=== PATIENT | female | born 1980 | race Caucasian/White ===

== ENCOUNTER 2020-10-20 16:31 | Emergency (ER) | payer SELFPAY ==
[~2020-10-20] VITALS: Ht 149.9 cm; Wt 97.3 kg
[~2020-10-20 16:31] MED LIST: ATOR10TA9 PO; INSU100C5 SQ-INSULIN; INSU100V8 SQ; LEVE250T5 PO; LISI2.5T PO; METF500T27 PO
[2020-10-20 17:14] LABS: BASOPHILS % (AUTO) 1 % (0-1); EOSINOPHILS % (AUTO) 1 % (1-7); LYMPHOCYTES % (AUTO) 24 % (22-44); MEAN CORPUSCULAR HEMOGLOBIN 30.7 pg (27.0-34.8); MEAN CORPUSCULAR HGB CONC 34.4 g/dL (32.4-35.8); MEAN PLATELET VOLUME 8.1 fL (7.4-10.4); MONOCYTES % (AUTO) 8 % (2-9); NEUTROPHILS % (AUTO) 66 % (42-75); PLATELET COUNT 359 x10^3/uL (130-400); RED CELL DISTRIBUTION WIDTH 13.6 % (9.6-15.2)
[2020-10-20 17:23] LABS: ALANINE AMINOTRANSFERASE 32 U/L (12-78); ALBUMIN 3.5 g/dL (3.4-5.0); ANION GAP 11 mmol/L (5-15); CHLORIDE 108 mmol/L (98-107); CREATININE 0.58 mg/dL (0.55-1.02)
[2020-10-20 17:27] LABS: ALKALINE PHOSPHATASE 84 U/L (45-117); BILIRUBIN,TOTAL 1.5 mg/dL (0.2-1.0); TOTAL PROTEIN 7.5 g/dL (6.4-8.2); TROPONIN I < 0.015 ng/mL (0.000-0.045)
--- NOTE | 2020-10-20 20:33 | NUR ---
PT BROUGHT BACK TO ROOM FROM LOBBY. PT CO RIGHT ARM PAIN THAT WRAPS AROUND TO HER BACK AND ACROSS HER CHEST. PT DENIES ANY SOB, TRAUMA, NUMBNESS OR TINGLING.
--- NOTE | 2020-10-20 20:49 | NUR ---
REPORT GIVEN TO MARCE SPANN
--- NOTE | 2020-10-20 21:27 | NUR ---
PROVIDED WITH INCENTIVE SPIROMETER. DEMONSTRATION APPROPRIATE. REVIEWED IMPORTANCE OF PCP F/U [facility] TO WATCH FOR [facility]
[2020-10-20 21:31] VITALS: BP 149/73
== END 2020-10-20 21:33 | disposition home or self-care (01) ==
LOC: ED 21:10
DX: R07.2 Precordial pain (principal); E80.7 Disorder of bilirubin metabolism, unspecified; R11.10 Vomiting, unspecified; R94.31 Abnormal electrocardiogram [ECG] [EKG]; E11.65 Type 2 diabetes mellitus with hyperglycemia; E78.5 Hyperlipidemia, unspecified; G89.29 Other chronic pain; G43.909 Migraine, unspecified, not intractable, without status migrainosus; Z90.49 Acquired absence of other specified parts of digestive tract
CPT/HCPCS: 36415; 71045; 80053; 84484; 85025; 93005; 99285

== ENCOUNTER 2020-10-25 10:23 | Emergency (ER) | payer OTHER ==
[~2020-10-25] VITALS: Ht 149.9 cm; Wt 98.6 kg
--- NOTE | 2020-10-25 10:43 | NUR ---
regulator mechanic: EKG done in triage
--- NOTE | 2020-10-25 11:14 | NUR ---
CAR WASH MANAGER: PT TO ROOM FROM LOBBY
--- NOTE | 2020-10-25 11:28 | NUR ---
PROVIDER AT BEDSIDE PT HOOKED UP TO HEART MONITOR, BP AND O2. PT WILL HAVE CONTINUAL MONITORING. BED RAILS UP X2. CALL REMOTE WITHIN REACH.
[2020-10-25 11:29] LABS: BASOPHILS % (AUTO) 1 % (0-1); EOSINOPHILS % (AUTO) 1 % (1-7); LYMPHOCYTES % (AUTO) 28 % (22-44); MEAN CORPUSCULAR HEMOGLOBIN 30.9 pg (27.0-34.8); MEAN CORPUSCULAR HGB CONC 35.4 g/dL (32.4-35.8); MEAN PLATELET VOLUME 8.5 fL (7.4-10.4); MONOCYTES % (AUTO) 7 % (2-9); NEUTROPHILS % (AUTO) 63 % (42-75); PLATELET COUNT 295 x10^3/uL (130-400); RED BLOOD COUNT 4.98 x10^6/uL (3.82-5.3); RED CELL DISTRIBUTION WIDTH 13.6 % (9.6-15.2)
--- NOTE | 2020-10-25 11:33 | NUR ---
PT REPORTS CONSTANTCHEST PAIN MODERATE STARTED LAST SUNDAY ON THE RIGHT CHEST "feels like it is in the lung" HURTS WITH MOVEMENT OR BREATHING AND SOB EXERTION, THROUGHT THE WEEK FELT DULL PAIN IN ANKLE AND FEELS HEAVY, THIS PAIN COMES AND GOES.
[2020-10-25 11:36] LABS: CALCIUM 8.5 mg/dL (8.5-10.1); CHLORIDE 105 mmol/L (98-107)
[2020-10-25 11:44] LABS: ALANINE AMINOTRANSFERASE 31 U/L (12-78); ALBUMIN 3.5 g/dL (3.4-5.0); ALKALINE PHOSPHATASE 82 U/L (45-117); ANION GAP 8 mmol/L (5-15); BILIRUBIN,TOTAL 1.3 mg/dL (0.2-1.0); CREATININE 0.68 mg/dL (0.55-1.02); TOTAL PROTEIN 7.3 g/dL (6.4-8.2); TROPONIN I < 0.015 ng/mL (0.000-0.045)
--- NOTE | 2020-10-25 13:06 | NUR ---
Report from Armida ZHENG. Dr. Brady at bedside to discuss POC with pt. Attempts to obtain PIV access continue.
--- NOTE | 2020-10-25 13:13 | NUR ---
Pt denies pain or SOB at this time.
--- NOTE | 2020-10-25 13:34 | NUR ---
PIV access unsuccessful. Discussed with Dr. Laguerre. Orders recieved for ddimer on pt, if positive then VQ scan.
--- NOTE | 2020-10-25 14:23 | NUR ---
Pt ambulatory to bathroom and back to bed without difficulty. Pt resting in bed, NADN, denies pain or SOB.
--- NOTE | 2020-10-25 15:24 | NUR ---
BREAK RN: PT RESTING IN ROOM. VS STABLE. NO ACUTE DISTRESS NOTED. CALL LIGHT IN PLACE. WILL CONTINUE TO MONITOR WHILE PRIMARY RN IS ON BREAK.
--- NOTE | 2020-10-25 15:38 | NUR ---
REPORT GIVEN TO MARCE PORTER
--- NOTE | 2020-10-25 16:20 | NUR ---
Pt resting in bed, NADN, denies needs.
[2020-10-25 16:31] VITALS: BP 145/90
== END 2020-10-25 16:35 | disposition home or self-care (01) ==
LOC: ED 12:53
DX: R06.00 Dyspnea, unspecified (principal); E11.9 Type 2 diabetes mellitus without complications
CPT/HCPCS: 36415; 71046; 80053; 83880; 84484; 85025; 85379; 93005; 99285

== ENCOUNTER 2020-11-10 07:25 | Emergency (ER) | payer OTHER ==
[~2020-11-10] VITALS: Ht 149.9 cm; Wt 99.0 kg
[2020-11-10 07:27] VITALS: BP 154/97
[2020-11-10] MEDS ORDERED: KETOROLAC 30 MG/1 ML IM ONE (08:00)
[2020-11-10] MEDS ORDERED: KETOROLAC 30 MG/1 ML ONE (08:22)
== END 2020-11-10 08:40 | disposition home or self-care (01) ==
LOC: ED 07:43
DX: E11.40 Type 2 diabetes mellitus with diabetic neuropathy, unspecified (principal); M79.661 Pain in right lower leg; E11.65 Type 2 diabetes mellitus with hyperglycemia; E78.5 Hyperlipidemia, unspecified; G43.909 Migraine, unspecified, not intractable, without status migrainosus; E66.01 Morbid (severe) obesity due to excess calories; Z68.41 Body mass index [BMI] 40.0-44.9, adult
CPT/HCPCS: 93971; 96372; 99284; J1885

== ENCOUNTER 2020-11-30 06:15 | Emergency (ER) | payer SELFPAY ==
[~2020-11-30] VITALS: Ht 149.9 cm; Wt 97.6 kg
--- NOTE | 2020-11-30 06:32 | NUR ---
pt presents to the ed with intermiten chest pain for 2.5 days. pt in gown, resting on gurney and placed on continuous monitoring.
--- NOTE | 2020-11-30 06:49 | NUR ---
REPORT OF PT FROM MARCE DURON AND ASSUMING CARE OF PT AT THIS TIME.
--- NOTE | 2020-11-30 06:49 | NUR ---
gave report to MARCE Bran
[2020-11-30 07:18] LABS: BASOPHILS % (AUTO) 1 % (0-1); EOSINOPHILS % (AUTO) 1 % (1-7); LYMPHOCYTES % (AUTO) 22 % (22-44); MEAN CORPUSCULAR HEMOGLOBIN 30.9 pg (27.0-34.8); MEAN CORPUSCULAR HGB CONC 34.8 g/dL (32.4-35.8); MEAN PLATELET VOLUME 8.6 fL (7.4-10.4); MONOCYTES % (AUTO) 8 % (2-9); NEUTROPHILS % (AUTO) 69 % (42-75); PLATELET COUNT 284 x10^3/uL (130-400); RED BLOOD COUNT 4.63 x10^6/uL (3.82-5.3); RED CELL DISTRIBUTION WIDTH 13.4 % (9.6-15.2)
[2020-11-30 07:29] LABS: ALBUMIN 3.4 g/dL (3.4-5.0); ANION GAP 6 mmol/L (5-15); CALCIUM 8.5 mg/dL (8.5-10.1); CHLORIDE 107 mmol/L (98-107); CREATININE 0.65 mg/dL (0.55-1.02)
[2020-11-30 07:33] LABS: TROPONIN I < 0.015 ng/mL (0.000-0.045)
[2020-11-30] MEDS ORDERED: INSULIN REGULAR 100 UNITS/ML, 3ML VIAL SQ-INSULIN ONE (08:30)
[2020-11-30] MEDS ORDERED: INSULIN LISPRO SINGLE DOSE, ER SQ-INSULIN ONE (08:48)
--- NOTE | 2020-11-30 08:54 | NUR ---
pt vss and updated in emr. pt d/c with d/c summary. all questions answered .pt ambulates to registration desk with steady gait for d/c home and denies any other needs pertaining to this visit.
[2020-11-30 08:55] VITALS: BP 126/86
== END 2020-11-30 09:14 | disposition home or self-care (01) ==
LOC: ED 07:05
DX: R06.00 Dyspnea, unspecified (principal); R07.89 Other chest pain; E11.65 Type 2 diabetes mellitus with hyperglycemia; R94.31 Abnormal electrocardiogram [ECG] [EKG]
CPT/HCPCS: 36415; 71046; 80048; 82040; 84484; 85025; 93005; 99285

== ENCOUNTER 2021-01-01 18:34 | Emergency (ER) | payer MEDICAID ==
[~2021-01-01 18:34] MED LIST changes: -LISI2.5T PO; +LISI2.5T12 PO
[2021-01-01] MEDS ORDERED: ACETAMINOPHEN 500 MG TABLET PO ONE (19:30)
--- NOTE | 2021-01-01 20:26 | NUR ---
PT BACK TO ROOM
[2021-01-01 20:47] VITALS: BP 156/95
== END 2021-01-01 20:57 | disposition home or self-care (01) ==
LOC: ED 18:50
DX: B34.9 Viral infection, unspecified (principal); Z20.822 Contact with and (suspected) exposure to COVID-19; R00.0 Tachycardia, unspecified; E11.65 Type 2 diabetes mellitus with hyperglycemia; E78.5 Hyperlipidemia, unspecified; G43.909 Migraine, unspecified, not intractable, without status migrainosus; Z90.49 Acquired absence of other specified parts of digestive tract
CPT/HCPCS: 71045; 93005; 99285; U0003; U0005

== ENCOUNTER 2021-01-11 17:17 | Emergency (ER) | payer MEDICAID ==
[~2021-01-11] VITALS: Ht 149.9 cm; Wt 96.5 kg
--- NOTE | 2021-01-11 17:33 | NUR ---
TOP WADDY: EKG PERFORMED IN TRIAGE.
--- NOTE | 2021-01-11 17:37 | NUR ---
COVID SWABBED FOR COVID-19 IN TRIAGE
[2021-01-11 18:27] LABS: BASOPHILS % (AUTO) 0 % (0-1); EOSINOPHILS % (AUTO) 0 % (1-7); LYMPHOCYTES % (AUTO) 16 % (22-44); MEAN CORPUSCULAR HEMOGLOBIN 29.8 pg (27.0-34.8); MEAN PLATELET VOLUME 8.3 fL (7.4-10.4); MONOCYTES % (AUTO) 10 % (2-9); NEUTROPHILS % (AUTO) 73 % (42-75); PLATELET COUNT 214 x10^3/uL (130-400); RED BLOOD COUNT 4.94 x10^6/uL (3.82-5.3); RED CELL DISTRIBUTION WIDTH 13.4 % (9.6-15.2)
[2021-01-11 18:35] LABS: ALBUMIN 3.2 g/dL (3.4-5.0); ANION GAP 9 mmol/L (5-15); CALCIUM 8.2 mg/dL (8.5-10.1); CHLORIDE 105 mmol/L (98-107)
[2021-01-11 18:44] LABS: ALANINE AMINOTRANSFERASE 31 U/L (12-78); ALKALINE PHOSPHATASE 87 U/L (45-117); BILIRUBIN,TOTAL 0.9 mg/dL (0.2-1.0); TOTAL PROTEIN 7.1 g/dL (6.4-8.2)
[2021-01-11 20:51] VITALS: BP 161/74
--- NOTE | 2021-01-11 20:53 | NUR ---
PT AMBULATORY TO TRIAGE ROOM FOR PROVIDER EVAL.
--- NOTE | 2021-01-11 20:54 | NUR ---
DR MILLARD PRESENT, PT ASSESSMENT, TEST RESULTS REVIEWED AND QUESTIONS ANSWERED. D/C PLAN DISCUSSED.
--- NOTE | 2021-01-11 20:58 | NUR ---
Patient/Caregiver given discharge instructions and they have confirmed that they understand the instructions. Patient ambulatory with steady gait.
== END 2021-01-11 21:06 | disposition home or self-care (01) ==
LOC: ED 17:30
DX: U07.1 COVID-19 (principal); J06.9 Acute upper respiratory infection, unspecified; R94.31 Abnormal electrocardiogram [ECG] [EKG]
CPT/HCPCS: 36415; 71045; 80053; 85025; 93005; 99285; U0003; U0005

== ENCOUNTER 2021-01-14 14:23 | Emergency (ER) | payer MEDICAID ==
[~2021-01-14] VITALS: Ht 149.9 cm; Wt 94.0 kg
[2021-01-14 14:28] VITALS: BP 144/82
[2021-01-14 15:22] LABS: ACETONE, SERUM Small (20mg/dL) (Negative); BASOPHILS % (AUTO) 0 % (0-1); EOSINOPHILS % (AUTO) 0 % (1-7); LYMPHOCYTES % (AUTO) 23 % (22-44); MEAN CORPUSCULAR HEMOGLOBIN 29.9 pg (27.0-34.8); MEAN CORPUSCULAR HGB CONC 34.3 g/dL (32.4-35.8); MEAN PLATELET VOLUME 8.5 fL (7.4-10.4); MONOCYTES % (AUTO) 8 % (2-9); NEUTROPHILS % (AUTO) 70 % (42-75); PLATELET COUNT 199 x10^3/uL (130-400); RED BLOOD COUNT 4.84 x10^6/uL (3.82-5.3); RED CELL DISTRIBUTION WIDTH 13.3 % (9.6-15.2)
[2021-01-14 15:34] LABS: ALBUMIN 2.8 g/dL (3.4-5.0); ANION GAP 7 mmol/L (5-15); CALCIUM 8.2 mg/dL (8.5-10.1); CHLORIDE 104 mmol/L (98-107)
[2021-01-14 15:42] LABS: ALANINE AMINOTRANSFERASE 25 U/L (12-78); ALKALINE PHOSPHATASE 77 U/L (45-117); CREATININE 0.74 mg/dL (0.55-1.02); TOTAL PROTEIN 7.1 g/dL (6.4-8.2)
--- NOTE | 2021-01-14 23:57 | NUR ---
[id number] FOR PROVIDER RECHECK
--- NOTE | 2021-01-15 01:13 | NUR ---
NA X 2
--- NOTE | 2021-01-15 01:54 | NUR ---
NA X3
== END 2021-01-15 01:55 | disposition left against medical advice (07) ==
LOC: ED 15:00
DX: U07.1 COVID-19 (principal); E11.65 Type 2 diabetes mellitus with hyperglycemia
CPT/HCPCS: 36415; 80053; 82010; 82800; 84703; 85025; 99283